=== PATIENT | female | born 1970 | race Caucasian/White ===

== ENCOUNTER 2019-08-22 14:55 | Emergency (ER) | payer OTHER ==
[~2019-08-22] VITALS: Ht 165.1 cm; Wt 72.6 kg
[2019-08-22 14:59] VITALS: BP 129/101
--- NOTE | 2019-08-22 15:05 | NUR ---
48 Y/O FEMALE BIBA WITH POSSIBLE OVERDOSE. PT ADMITS TO METH USE AND ETOH CONSUMPTION TODAY. STATES SHE HAS "A LOT OF VODKA". ADMITS TO HEROIN USE YESTERDAY. EMS STATES PT WAS FOUND ON HER LT LATERAL SIDE AT HOME, UNRESPONSIVE. PT PRESENTS WITH GCS OF 14 UPON ARRIVAL. RR EVEN AND UNLABORED, PLACED ON THE MONITOR. DR DIXON MADE AWARE OF STATUS. WILL CONTINUE TO MONITOR
--- NOTE | 2019-08-22 15:07 | NUR ---
DR AN AT BEDSIDE EXAMINING PT
[2019-08-22] MEDS ORDERED: NACL 0.9% 1,000 ML IV ONE (15:10)
--- NOTE | 2019-08-22 15:33 | NUR ---
CONTACTED POISON CONTROL. SPOKE TO ED RECOMMENDATIONS-- 6 HR OBSERVATION ON AIRCONDITIONING DRAFTING OFFICER WITH SEIZURE PRECAUTIONS
--- NOTE | 2019-08-22 16:28 | NUR ---
PT AWAKE AND ALERT, VSS. FRIEND AT BEDSIDE. WILL CONTINUE TO MONITOR
[2019-08-22 17:02] VITALS: BP 120/72
--- NOTE | 2019-08-22 17:02 | NUR ---
Patient discharged with v/s stable. Written and verbal after care instructions given and explained. Patient verbalized understanding. Ambulatory with steady gait. All questions addressed prior to discharge. Advised to follow up with PMD.
== END 2019-08-22 17:02 | disposition home or self-care (01) ==
LOC: MED 14:55
DX: T43.621A Poisoning by amphetamines, accidental (unintentional), initial encounter (principal); F19.10 Other psychoactive substance abuse, uncomplicated; F10.10 Alcohol abuse, uncomplicated; Y92.89 Other specified places as the place of occurrence of the external cause
CPT/HCPCS: 99283; J7030

== ENCOUNTER 2019-11-06 21:20 | Emergency (ER) | payer OTHER ==
[~2019-11-06] VITALS: Ht 165.1 cm; Wt 68.0 kg
[2019-11-06 21:21] VITALS: BP 138/90
--- NOTE | 2019-11-06 21:30 | NUR ---
pt came in to er with c/o cough today. no cough abserved. no fever and O2 sat is 97 percent on ra. pt denies pain 0/10 at this time. pt is alert and oriented x 4 pt is able to answerr questions appropriately. ermd made aware of status, safety measures in place. will continue to monitor.
--- NOTE | 2019-11-06 22:59 | NUR ---
pt sitting in chair, vss. comfort measures offered, pt tolerated well. will continue to monitor
[2019-11-06] MEDS ORDERED: DEXAMETHASONE 10 MG/ML VIAL PO ONE (23:35)
--- NOTE | 2019-11-06 23:46 | NUR ---
PT BEING XR IN CHAIR.
[2019-11-07 00:40] VITALS: BP 131/96
--- NOTE | 2019-11-07 00:40 | NUR ---
Patient discharged with v/s stable. Written and verbal after care instructions given and explained. Patient alert, oriented and verbalized understanding of instructions. Ambulatory with steady gait. All questions addressed prior to discharge. ID band removed. Patient advised to follow up with PMD. Rx of ALBUERTOL, GUAIATUSSIN, AND AZITHROMYCIN given. Patient educated on indication of medication including possible reaction and side effects. Opportunity to ask questions provided and answered.
== END 2019-11-07 00:40 | disposition home or self-care (01) ==
LOC: MED 21:20
DX: J20.9 Acute bronchitis, unspecified (principal); J04.0 Acute laryngitis; F17.210 Nicotine dependence, cigarettes, uncomplicated
CPT/HCPCS: 71045; 99283; J1100; Q0092

== ENCOUNTER 2020-02-03 16:40 | Emergency (ER) | payer OTHER ==
[~2020-02-03] VITALS: Ht 165.1 cm; Wt 68.0 kg
[2020-02-03 16:40] VITALS: BP 114/62
--- NOTE | 2020-02-03 16:40 | NUR ---
Patient BIBA ALS, transferred to bed 2. RN evaluating patient at bedside.
--- NOTE | 2020-02-03 16:48 | NUR ---
49 Y/O F BIBA FROM HOME C/C SEIZURE. PER PT EPISODE OF SEIZURE FOR 10 MINUTES, WITNESSED BY SISTER AT HOME, 911 CALLED. PT PRESENTS A/OX4, WITH A HEAD INJURY IN THE RIGHT PARIETAL LOBE AREA, BLEEDING NOTED, ERMD AT BEDSIDE-BLEEDING CONTROLLED. NEURO WNL, PUPILS PERRLA 3MM REACTIVE. ALL CRANIAL NERVES INTACT. PT NKA. HX SEIZURES,DEPRESSION. RX ABILIFY. NO NVD. SIDE RAIL X2. SEIZURE PRECAUTIONS IN PLACE.
--- NOTE | 2020-02-03 16:48 | NUR ---
Dr. Carrera is evaluating the patient at bedside.
[2020-02-03] MEDS ORDERED: levETIRAcetam 500 MG TAB PO ONE (17:00)
[2020-02-03 17:59] VITALS: BP 114/62
--- NOTE | 2020-02-03 17:59 | NUR ---
Patient discharged with v/s stable. Written and verbal after care instructions given and explained. Patient alert, oriented and verbalized understanding of instructions. Ambulatory with steady gait. All questions addressed prior to discharge. ID band removed. Patient advised to follow up with PMD. Rx of KEAMIRA given. Patient educated on indication of medication including possible reaction and side effects. Opportunity to ask questions provided and answered.
== END 2020-02-03 17:59 | disposition home or self-care (01) ==
LOC: MED 16:40
DX: S01.91XA Laceration without foreign body of unspecified part of head, initial encounter (principal); F10.951 Alcohol use, unspecified with alcohol-induced psychotic disorder with hallucinations; R56.9 Unspecified convulsions; X58.XXXA Exposure to other specified factors, initial encounter; Y93.89 Activity, other specified; Y92.89 Other specified places as the place of occurrence of the external cause; Y99.8 Other external cause status
CPT/HCPCS: 70450; 99284

== ENCOUNTER 2020-11-11 23:25 | Emergency (ER) | payer OTHER ==
[~2020-11-11] VITALS: Ht 162.6 cm; Wt 63.5 kg
[2020-11-11 23:33] VITALS: BP 148/105
--- NOTE | 2020-11-11 23:39 | NUR ---
PT TAKEN TO BED 2
[2020-11-11] MEDS ORDERED: NACL 0.9% 1,000 ML IV ONE (23:40)
--- NOTE | 2020-11-11 23:52 | NUR ---
50/F BIB self complaining of overdose yesterday, pt took xanax x 4 and percocet x 4 at 2200 11/10/20. Pt without any suicidal thoughts at this time and denies any intention of hurting or killing self. Pt aaox4, ambulatory, able to make needs known, PERRL, calm and cooperative to care. Safety measures in place, will continue to monitor. med hx: borderline personality disorder allergies: nka
[2020-11-11 23:57] LABS: EOSINOPHILS # (AUTO) 0.1 K/uL (0-0.4); EOSINOPHILS % (AUTO) 2.1 % (0.0-4.0); HEMATOCRIT 49.7 % (36-48); HEMOGLOBIN 16.7 g/dL (12.0-16.0); LYMPHOCYTES # (AUTO) 1.4 K/uL (2.5-16.5); LYMPHOCYTES % (AUTO) 33.1 % (20.5-51.1); MEAN CORPUSCULAR HEMOGLOBIN 34 pg (27-31); MEAN CORPUSCULAR HGB CONC 34 g/dL (33-37); MEAN CORPUSCULAR VOLUME 99.4 fL (80-94); MONOCYTES # (AUTO) 0.2 K/uL (0.8-1.0); MONOCYTES % (AUTO) 4.6 % (1.7-9.3); NEUTROPHILS # (AUTO) 2.5 K/uL (1.8-7.7); NEUTROPHILS % (AUTO) 59.2 % (42.2-75.2); PLATELET COUNT (AUTO) 306 K/uL (140-450); RED CELL DISTRIBUTION WIDTH 14.4 % (11.6-13.7); WHITE BLOOD COUNT (AUTO) 4.3 K/uL (4.8-10.8)
[2020-11-12 00:12] LABS: ALBUMIN 3.9 g/dL (3.4-5.0); ANION GAP 13.5 (8-16); CARBON DIOXIDE 27.5 mmol/L (21-32); CREATININE 0.8 mg/dL (0.6-1.3); TOTAL BILIRUBIN 0.7 mg/dL (0.0-1.0)
--- NOTE | 2020-11-12 00:24 | NUR ---
urine sent to lab
--- NOTE | 2020-11-12 00:36 | NUR ---
pt complaining of leg pain. md made aware. order of motrin 800mg PO once received.
[2020-11-12] MEDS ORDERED: IBUPROFEN 800 MG TAB PO ONE (00:40)
[2020-11-12 00:41] LABS: BARBITURATE, URINE NEGATIVE ng/ml (NEG <=200); BENZODIAZEPINE, URINE POSITIVE ng/mL (NEG <=200)
[2020-11-12 00:42] LABS: CANNABINOID, URINE NEGATIVE ng/mL (NEG <=50); OPIATE, URINE NEGATIVE ng/mL (NEG <=2000); PHENCYCLIDINE SCREEN,URINE NEGATIVE ng/mL (NEG <=25)
[2020-11-12 00:43] LABS: COCAINE, URINE NEGATIVE ng/mL (NEG <=300)
--- NOTE | 2020-11-12 01:04 | NUR ---
Dr. Simental examining patient.
--- NOTE | 2020-11-12 01:26 | NUR ---
DR. PERKINS TALKING TO PT'S ROOMATE (RAF) ON THE PHONE.
--- NOTE | 2020-11-12 01:44 | NUR ---
CALLED SAMIR GUPTA; SPOKE TO PAXTON REGARDING PSYCH EVALUATION FOR PT
--- NOTE | 2020-11-12 01:57 | NUR ---
CALLED SAMIR GUPTA AND S/W PAXTON TO INFORM HER THE PSYCH EVAL WAS NO LONGER NECESSARY PER DR. PERKINS.
--- NOTE | 2020-11-12 02:00 | NUR ---
Patient does not wish to proceed with medical care recommended by DR. PERKINS. Patient given information related to possible complications, up to and including , which could occur as a result of leaving hospital at this time. Patient verbalizes understanding of risks involved leaving against medical advice. Patient has signed AMA form.
== END 2020-11-12 02:00 | disposition home or self-care (01) ==
LOC: MED 23:25
DX: T43.622A Poisoning by amphetamines, intentional self-harm, initial encounter (principal); R42 Dizziness and giddiness; M79.652 Pain in left thigh; Y92.89 Other specified places as the place of occurrence of the external cause
CPT/HCPCS: 36415; 80053; 80305; 85025; 96360; 99283; G0482; J7030

== ENCOUNTER 2021-04-02 14:23 | Emergency (ER) | payer OTHER ==
[~2021-04-02] VITALS: Ht 165.1 cm; Wt 66.2 kg
[2021-04-02 14:30] VITALS: BP 138/109
[2021-04-02] MEDS ORDERED: KETOROLAC 60 MG/2 ML VIAL IM ONE (14:35)
--- NOTE | 2021-04-02 14:42 | NUR ---
PT TAKEN TO XRAY VIA W/C
--- NOTE | 2021-04-02 14:50 | NUR ---
PT RETURNED FROM XRAY
--- NOTE | 2021-04-02 14:50 | NUR ---
50 Y/O FEMALE C/O RIGHT SHOULDER PAIN X 4 DAYS. PT STATES 8/10, ACHING, EVEN AT REST. DENIES NUMBNESS. DENIES TRAUMA OR INJURY TO AREA. NO MEDICATIONS TAKEN. NO BRUISING OR TRAUMA NOTED. PMH: SEIZURES, BORDERLINE PERSONALITY DO MEDS: ABILIFY, UNRECALLED SEIZURE MEDS NKA
[2021-04-02] MEDS ORDERED: IBUP-2213 PO (15:50)
--- NOTE | 2021-04-02 15:57 | NUR ---
pt was given a sling on left arm by CHAS Roque
[2021-04-02 16:00] VITALS: BP 138/109
== END 2021-04-02 16:00 | disposition home or self-care (01) ==
LOC: MED 14:23
DX: S46.911A Strain of unspecified muscle, fascia and tendon at shoulder and upper arm level, right arm, initial encounter (principal); I10 Essential (primary) hypertension; F17.210 Nicotine dependence, cigarettes, uncomplicated; Z86.69 Personal history of other diseases of the nervous system and sense organs; Z79.1 Long term (current) use of non-steroidal anti-inflammatories (NSAID); X58.XXXA Exposure to other specified factors, initial encounter; Y92.89 Other specified places as the place of occurrence of the external cause; Y93.89 Activity, other specified; Y99.8 Other external cause status
CPT/HCPCS: 73030; 96372; 99283; J1885

== ENCOUNTER 2021-08-28 14:34 | Emergency (ER) | payer OTHER ==
[~2021-08-28] VITALS: Ht 165.1 cm; Wt 72.6 kg
[~2021-08-28 14:34] MED LIST: IBUP-2213 PO
--- NOTE | 2021-08-28 14:55 | NUR ---
AMBULATED TO ER BED 7
--- NOTE | 2021-08-28 14:55 | NUR ---
Bc corona in [facility] - 08/28/21 at 1457 by MEDDM ANBULATED TO ER BED 7
--- NOTE | 2021-08-28 14:57 | NUR ---
md at bedside evaluating pt
[2021-08-28 14:59] VITALS: BP 134/95
--- NOTE | 2021-08-28 15:00 | NUR ---
50 Y/O F PT AMBULATED TO BED 7, REFERRED FROM CLINIC FOR R/O STROKE. C/O R HAND NUMBNESS X 2 DAYS. DENIES TRAUMA/INJURY. NKDA SX: TUBAL LIGATION 2005
[2021-08-28] MEDS ORDERED: FOLIC ACID 1 MG TAB PO ONE (15:10)
[2021-08-28] MEDS ORDERED: NACL 0.9% 1,000 ML IV ONE (15:10)
[2021-08-28] MEDS ORDERED: THIAMINE 200 MG/2 ML VIAL IV ONE (15:10)
[2021-08-28 15:38] LABS: BASOPHILS # (AUTO) 0.1 K/uL (0.00-0.22); BASOPHILS % (AUTO) 1.6 % (0.0-2.0); EOSINOPHILS # (AUTO) 0.2 K/uL (0-0.4); EOSINOPHILS % (AUTO) 2.3 % (0.0-4.0); HEMATOCRIT 45.7 % (36-48); HEMOGLOBIN 15.7 g/dL (12.0-16.0); LYMPHOCYTES # (AUTO) 1.5 K/uL (2.5-16.5); LYMPHOCYTES % (AUTO) 22.7 % (20.5-51.1); MEAN CORPUSCULAR HEMOGLOBIN 34 pg (27-31); MEAN CORPUSCULAR HGB CONC 34 g/dL (33-37); MEAN CORPUSCULAR VOLUME 99.9 fL (80-94); MONOCYTES # (AUTO) 0.4 K/uL (0.8-1.0); NEUTROPHILS # (AUTO) 4.5 K/uL (1.8-7.7); NEUTROPHILS % (AUTO) 67.4 % (42.2-75.2); PLATELET COUNT (AUTO) 241 K/uL (140-450); RED BLOOD CELL COUNT(AUTO) 4.57 MIL/uL (4.20-5.40); RED CELL DISTRIBUTION WIDTH 13.9 % (11.6-13.7); WHITE BLOOD COUNT (AUTO) 6.6 K/uL (4.8-10.8)
[2021-08-28 15:56] LABS: ALBUMIN 4.2 g/dL (3.4-5.0); ANION GAP 14.3 (8-16); CREATININE 0.8 mg/dL (0.6-1.3); POTASSIUM 3.3 mmol/L (3.5-5.1); TOTAL BILIRUBIN 1.2 mg/dL (0.0-1.0)
[2021-08-28 16:09] LABS: MAGNESIUM 1.8 mg/dL (1.8-2.4)
[2021-08-28] MEDS ORDERED: POTASSIUM CHLORIDE 10 MEQ TABER PO ONE (16:20)
[2021-08-28] MEDS ORDERED: chlordiazePOXIDE 25 MG CAP PO ONE (16:25)
[2021-08-28] MEDS ORDERED: IBUPROFEN 600 MG TAB PO ONE (16:25)
[2021-08-28] MEDS ORDERED: LIB25 PO (16:30)
[2021-08-28 16:55] VITALS: BP 141/86
--- NOTE | 2021-08-28 16:55 | NUR ---
Patient discharged with v/s stable. Written and verbal after care instructions given and explained. Patient alert, oriented and verbalized understanding of instructions. Ambulatory with steady gait. All questions addressed prior to discharge. ID band removed. Patient advised to follow up with PMD. Rx of LIBRIUM given. Patient educated on indication of medication including possible reaction and side effects. Opportunity to ask questions provided and answered.
== END 2021-08-28 16:55 | disposition home or self-care (01) ==
LOC: MED 14:34
DX: F10.239 Alcohol dependence with withdrawal, unspecified (principal); R20.2 Paresthesia of skin; E87.6 Hypokalemia; Z79.899 Other long term (current) drug therapy; Y90.1 Blood alcohol level of 20-39 mg/100 ml
CPT/HCPCS: 36415; 70450; 80053; 82948; 83690; 83735; 84484; 85025; 93005; 96361; 96374; 99285; G0482; J3411; J7030; 99284

== ENCOUNTER 2021-09-13 10:16 | Emergency (ER) | payer OTHER ==
[~2021-09-13] VITALS: Ht 165.1 cm; Wt 71.7 kg
[~2021-09-13 10:16] MED LIST changes: +LIB25 PO
[2021-09-13 10:24] VITALS: BP 131/84
--- NOTE | 2021-09-13 10:30 | NUR ---
Pt ambulated to bed 12 with steady/even gait.
--- NOTE | 2021-09-13 10:35 | NUR ---
50 y/o F BIB self from home c/o intermittent headaches s/p "2 seizures 2 days ago." 04/13, dull/intermittent, non-radiating. Denies neck/back pain, nausea, dizziness, blurry vision, fall, syncope. Pt reports hx of seizures, however has not been diagnosed with seizures. Denies medications prior to arrival. Pt states 2 shots of alcohol this morning d/t "DTs." Bed locked in lowest position, side rails x 2. Seizure precautions in place. PMH: alcoholism, ulcers, borderline personality disorder Meds: apripiprazole NKDA Sx: 2 C-sections
--- NOTE | 2021-09-13 10:37 | NUR ---
Seizure precautions in place.
[2021-09-13] MEDS ORDERED: THIAMINE 200 MG/2 ML VIAL IM ONE (11:05)
[2021-09-13] MEDS ORDERED: ACETAMINOPHEN EXTRA STRENGTH 500 MG TAB PO ONE (11:05)
[2021-09-13] MEDS ORDERED: FOLIC ACID 5 MG, MULTIVITAMIN-12 10 ML in NACL 0.9% 1,000 ML IV ONE (11:05)
[2021-09-13] MEDS ORDERED: MAG SULF 2000 MG/WATER PREMIX 50 ML IV ONE (11:05)
--- NOTE | 2021-09-13 11:07 | NUR ---
Dr. Urena at bedside.
[2021-09-13] MEDS ORDERED: FOLIC ACID 5 MG/ML SYR ONE (11:14)
[2021-09-13] MEDS ORDERED: DEXAMETHASONE 10 MG/ML VIAL IVP ONE (11:15)
[2021-09-13] MEDS ORDERED: KETOROLAC 15 MG/ML VIAL IVP ONE (11:15)
[2021-09-13] MEDS ORDERED: diphenhydrAMINE 50 MG/ML VIAL IVP ONE (11:15)
[2021-09-13] MEDS ORDERED: METOCLOPRAMIDE 10 MG/2 ML INJ VIAL IVP ONE (11:15)
[2021-09-13] MEDS ORDERED: MULTIVITAMIN-12 10 ML VIAL IV ONE (11:16)
[2021-09-13 11:50] LABS: HEMOGLOBIN 14.4 g/dL (12.0-16.0); MEAN CORPUSCULAR HEMOGLOBIN 34 pg (27-31); MEAN CORPUSCULAR HGB CONC 34 g/dL (33-37); MEAN CORPUSCULAR VOLUME 98.5 fL (80-94); PLATELET COUNT (AUTO) 284 K/uL (140-450); RED BLOOD CELL COUNT(AUTO) 4.27 MIL/uL (4.20-5.40); RED CELL DISTRIBUTION WIDTH 14.2 % (11.6-13.7); WHITE BLOOD COUNT (AUTO) 17.6 K/uL (4.8-10.8)
[2021-09-13 12:08] LABS: BARBITURATE, URINE NEGATIVE ng/ml (NEG <=200); BENZODIAZEPINE, URINE POSITIVE ng/mL (NEG <=200); COCAINE, URINE NEGATIVE ng/mL (NEG <=300)
[2021-09-13 12:09] LABS: CANNABINOID, URINE NEGATIVE ng/mL (NEG <=50); OPIATE, URINE NEGATIVE ng/mL (NEG <=2000); PHENCYCLIDINE SCREEN,URINE NEGATIVE ng/mL (NEG <=25)
[2021-09-13 13:05] LABS: ALBUMIN 3.1 g/dL (3.4-5.0); ANION GAP 12.9 (8-16); ASPARTATE AMINOTRANSFERASE 270 U/L (15-37); CHLORIDE 97 mmol/L (98-107); CREATININE 0.6 mg/dL (0.6-1.3); GFR ARICAN-AMERICAN 136 mL/min (>90); GLUCOSE 98 mg/dL (74-106); SALICYLATE 5.4 mg/dL (2.8-20.0); SODIUM SERUM 136 mmol/L (136-145); TOTAL BILIRUBIN 0.9 mg/dL (0.0-1.0); UREA NITROGEN, BLOOD 9 mg/dL (7-18)
[2021-09-13 13:42] LABS: ACETAMINOPHEN < 0.5 ug/ml (10-30); POTASSIUM 2.9 mmol/L (3.5-5.1)
[2021-09-13] MEDS ORDERED: POTASSIUM CHL 40 MEQ/ D5-1/2NS 1,000 ML IV ONE (13:50)
--- NOTE | 2021-09-13 13:50 | NUR ---
Dr. Urena at bedside reassesing patient.
[2021-09-13] MEDS ORDERED: POTA10TA70 PO (13:55)
--- NOTE | 2021-09-13 14:04 | NUR ---
Patient refused medication stating infusion will take too long. Dr. Urena made aware and PO meds to be placed.
[2021-09-13] MEDS ORDERED: POTASSIUM CHLORIDE 10 MEQ TABER PO ONE (14:05)
--- NOTE | 2021-09-13 14:15 | NUR ---
Pt reports pain alleviated; 2/10 at this time. All pt needs met.
[2021-09-13 14:17] LABS: LYMPHOCYTES % (MANUAL) 14 % (20-46)
[2021-09-13 14:18] LABS: BASOPHILS % (MANUAL) 0 % (0-2); BLASTS, MANUAL % 0 % (0-0); EOSINOPHILS % (MANUAL) 0 % (0-4); METAMYELOCYTES % 0 % (0-0); MONOCYTES % (MANUAL) 10 % (5-12); MYELOCYTES % 0 % (0-0); OTHER CELLS,MANUAL % 0 (0-0); PROMYELOCYTES % 0 % (0-0)
[2021-09-13 14:21] VITALS: BP 120/88
--- NOTE | 2021-09-13 14:30 | NUR ---
Patient discharged with v/s stable. Written and verbal after care instructions given and explained. Patient alert, oriented and verbalized understanding of instructions. Ambulatory with steady gait. All questions addressed prior to discharge. ID band removed. Patient advised to follow up with PMD. Rx of Anderson rodríguez. Patient educated on indication of medication including possible reaction and side effects. Opportunity to ask questions provided and answered.
== END 2021-09-13 14:30 | disposition home or self-care (01) ==
LOC: MED 10:16
DX: R51.9 Headache, unspecified (principal); E87.6 Hypokalemia; F10.10 Alcohol abuse, uncomplicated; F15.10 Other stimulant abuse, uncomplicated; Z79.899 Other long term (current) drug therapy; Z98.890 Other specified postprocedural states; Y90.4 Blood alcohol level of 80-99 mg/100 ml
CPT/HCPCS: 36415; 80053; 80305; 82550; 82553; 85025; 96365; 96366; 96372; 96375; 99284; G0480; G0482; J1100; J1200; J1885; J2765; J3411; J3475; 93005; A9153; J3490

== ENCOUNTER 2022-03-19 10:12 | Emergency (ER) | payer OTHER ==
[~2022-03-19] VITALS: Ht 165.1 cm; Wt 77.1 kg
[~2022-03-19 10:12] MED LIST changes: +POTA10TA70 PO
[2022-03-19 10:21] VITALS: BP 112/69
--- NOTE | 2022-03-19 10:26 | NUR ---
PATIENT AMBULATED TO BED 12.
--- NOTE | 2022-03-19 11:03 | NUR ---
51 y/o female bib self, c/o generalized body rash for 6 days. denies nausea, vomiting, diarrhea. a&o x4 with even and steady gait. lungs clear bl, heart rate even and regular. pt denies anyone sick in the household with the same symptoms. pt denies any fever, cp, sob, or cough at this time. vss. patient positioned for comfort. hob elevated. bed down. ermd made aware of pt. pmh: seizure nka
[2022-03-19] MEDS ORDERED: CETI10SG1 PO (11:45)
[2022-03-19 11:52] VITALS: BP 112/69
--- NOTE | 2022-03-19 11:52 | NUR ---
Patient discharged with v/s stable. Written and verbal after care instructions given and explained. Patient alert, oriented and verbalized understanding of instructions. Ambulatory with steady gait. All questions addressed prior to discharge. ID band removed. Patient advised to follow up with PMD. Rx of zyrtec (sent) given. Patient educated on indication of medication including possible reaction and side effects. Opportunity to ask questions provided and answered.
== END 2022-03-19 11:52 | disposition home or self-care (01) ==
LOC: MED 10:12
DX: R21 Rash and other nonspecific skin eruption (principal)
CPT/HCPCS: 99282

== ENCOUNTER 2022-08-20 18:07 | Emergency (ER) | payer OTHER ==
[~2022-08-20 18:07] MED LIST changes: +CETI10SG1 PO
--- NOTE | 2022-08-20 18:20 | NUR ---
CALLED X 1. NO SHOW. Addendum: 08/20/22 at 1823 by MED1 PATIENT LEFT WITHOUT BEING SEEN BY DR. DR BONDS. NO FURTHER CARE PROVIDED FOR PATIENT.
--- NOTE | 2022-08-20 18:22 | NUR ---
CALLED [phone]. NO ANSWERING.
== END 2022-08-20 18:22 | disposition left against medical advice (07) ==
LOC: MED 18:07
DX: M54.50 Low back pain, unspecified (principal); Z53.21 Procedure and treatment not carried out due to patient leaving prior to being seen by health care provider

== ENCOUNTER 2022-08-27 16:50 | Emergency (ER) | payer OTHER ==
[~2022-08-27] VITALS: Ht 165.1 cm; Wt 68.0 kg
[2022-08-27 17:17] VITALS: BP 117/75
[2022-08-27 17:23] VITALS: BP 124/78
[2022-08-27 17:24] VITALS: BP 124/78
--- NOTE | 2022-08-27 17:32 | NUR ---
DAUGHTER LYNSEY CALLED [phone]
--- NOTE | 2022-08-27 17:36 | NUR ---
PT STATED SHE USED METH TODAY.
--- NOTE | 2022-08-27 17:36 | NUR ---
TO ER BED 11
--- NOTE | 2022-08-27 17:48 | NUR ---
ASSUMED PATIENT CARE, NURSING ASSESSMENT COMPLETED.
[2022-08-27 18:35] LABS: BILIRUBIN,URINE 3+ (NEGATIVE); BLOOD, URINE NEGATIVE (NEGATIVE); LEUKOCYTE ESTERASE ,URINE TRACE (NEGATIVE); NITRITE, URINE POSITIVE (NEGATIVE); UGLUCOSE TRACE (NEGATIVE)
[2022-08-27 18:36] LABS: APPEARANCE,URINE TURBID (CLEAR); COLOR,URINE ORANGE (YELLOW)
[2022-08-27 18:45] LABS: BARBITURATE, URINE POSITIVE ng/ml (NEG <=200)
[2022-08-27 18:46] LABS: BENZODIAZEPINE, URINE NEGATIVE ng/mL (NEG <=200); CANNABINOID, URINE POSITIVE ng/mL (NEG <=50); COCAINE, URINE NEGATIVE ng/mL (NEG <=300); OPIATE, URINE NEGATIVE ng/mL (NEG <=2000); PHENCYCLIDINE SCREEN,URINE NEGATIVE ng/mL (NEG <=25)
[2022-08-27 19:11] LABS: BASOPHILS # (AUTO) 0.1 K/uL (0.00-0.22); EOSINOPHILS % (AUTO) 0.3 % (0.0-4.0); HEMATOCRIT 47.1 % (36-48); HEMOGLOBIN 15.9 g/dL (12.0-16.0); LYMPHOCYTES # (AUTO) 3.7 K/uL (2.5-16.5); MEAN CORPUSCULAR HEMOGLOBIN 35 pg (27-31); MEAN CORPUSCULAR HGB CONC 34 g/dL (33-37); MEAN CORPUSCULAR VOLUME 104.9 fL (80-94); MONOCYTES # (AUTO) 0.8 K/uL (0.8-1.0); MONOCYTES % (AUTO) 6.1 % (1.7-9.3); NEUTROPHILS # (AUTO) 8.6 K/uL (1.8-7.7); NEUTROPHILS % (AUTO) 64.6 % (42.2-75.2); PLATELET COUNT (AUTO) 173 K/uL (140-450); RED BLOOD CELL COUNT(AUTO) 4.49 MIL/uL (4.20-5.40); RED CELL DISTRIBUTION WIDTH 18.5 % (11.6-13.7); WHITE BLOOD COUNT (AUTO) 13.3 K/uL (4.8-10.8)
[2022-08-27 19:25] LABS: ALBUMIN 5.1 g/dL (3.4-5.0); ANION GAP 19.7 (8-16); ASPARTATE AMINOTRANSFERASE 77 U/L (15-37); CARBON DIOXIDE 24.7 mmol/L (21-32); CHLORIDE 94 mmol/L (98-107); CREATININE 2.1 mg/dL (0.6-1.3); GFR ARICAN-AMERICAN 32 mL/min (>90); GLUCOSE 121 mg/dL (74-106); POTASSIUM 3.4 mmol/L (3.5-5.1); SODIUM SERUM 135 mmol/L (136-145); UREA NITROGEN, BLOOD 16 mg/dL (7-18)
--- NOTE | 2022-08-27 19:30 | NUR ---
Patient lying in bed, A/Ox4, chest rise and fall symmetrical, no c/o pain or s/s of discomfort, on monitor, seizure/pads precautions in place.
[2022-08-27] MEDS ORDERED: CEPH-588 PO (19:50)
[2022-08-27 20:03] VITALS: BP 118/75
== END 2022-08-27 20:00 | disposition home or self-care (01) ==
LOC: MED 16:50
DX: R41.0 Disorientation, unspecified (principal); N39.0 Urinary tract infection, site not specified; F19.90 Other psychoactive substance use, unspecified, uncomplicated; F15.90 Other stimulant use, unspecified, uncomplicated; Z86.69 Personal history of other diseases of the nervous system and sense organs; Z98.890 Other specified postprocedural states
CPT/HCPCS: 36415; 80053; 80305; 81001; 82140; 85025; 87086; 99283; G0482

== ENCOUNTER 2022-10-07 08:11 | Inpatient (IN) | payer OTHER ==
[~2022-10-07] VITALS: Ht 165.1 cm; Wt 72.6 kg
[~2022-10-07 08:11] MED LIST changes: +CEPH-588 PO
--- NOTE | 2022-10-07 08:17 | NUR ---
PT AMB TO BED 9
[2022-10-07 08:18] VITALS: BP 150/100
[2022-10-07] MEDS ORDERED: LORazepam 2 MG/ML VIAL IVP ONE ×2 (08:35→11:15)
[2022-10-07] MEDS ORDERED: NACL 0.9% 1,000 ML IV ONE (08:35)
[2022-10-07 09:33] LABS: BASOPHILS # (AUTO) 0.1 K/uL (0.00-0.22); BASOPHILS % (AUTO) 1.2 % (0.0-2.0); EOSINOPHILS # (AUTO) 0.1 K/uL (0-0.4); HEMATOCRIT 43.9 % (36-48); HEMOGLOBIN 15.2 g/dL (12.0-16.0); LYMPHOCYTES # (AUTO) 1.8 K/uL (2.5-16.5); LYMPHOCYTES % (AUTO) 26.7 % (20.5-51.1); MEAN CORPUSCULAR HEMOGLOBIN 36 pg (27-31); MEAN CORPUSCULAR HGB CONC 35 g/dL (33-37); MEAN CORPUSCULAR VOLUME 104.6 fL (80-94); MONOCYTES # (AUTO) 0.4 K/uL (0.8-1.0); MONOCYTES % (AUTO) 5.9 % (1.7-9.3); NEUTROPHILS # (AUTO) 4.5 K/uL (1.8-7.7); NEUTROPHILS % (AUTO) 65.2 % (42.2-75.2); PLATELET COUNT (AUTO) 217 K/uL (140-450); RED CELL DISTRIBUTION WIDTH 15.4 % (11.6-13.7); WHITE BLOOD COUNT (AUTO) 6.9 K/uL (4.8-10.8)
--- NOTE | 2022-10-07 09:33 | NUR ---
AMBULATES WITH STEADY GAIT TO BR. NOTED HAND TREMORS
[2022-10-07 11:01] LABS: ALBUMIN 4.9 g/dL (3.4-5.0); ANION GAP 21.9 (8-16); ASPARTATE AMINOTRANSFERASE 69 U/L (15-37); CARBON DIOXIDE 26.1 mmol/L (21-32); CHLORIDE 100 mmol/L (98-107); CREATININE 0.8 mg/dL (0.6-1.3); GFR ARICAN-AMERICAN 97 mL/min (>90); GLUCOSE 101 mg/dL (74-106); SODIUM SERUM 144 mmol/L (136-145); TOTAL BILIRUBIN 1.4 mg/dL (0.0-1.0); UREA NITROGEN, BLOOD 12 mg/dL (7-18)
[2022-10-07] MEDS ORDERED: MAGNESIUM OXIDE 400 MG TAB PO PRN (11:35)
[2022-10-07] MEDS ORDERED: LORazepam 2 MG/ML VIAL IVP PRN (11:35)
[2022-10-07] MEDS ORDERED: ONDANSETRON 4 MG/2 ML VIAL IVP PRN (11:35)
[2022-10-07] MEDS ORDERED: ACETAMINOPHEN 325 MG TAB PO PRN (11:35)
[2022-10-07] MEDS ORDERED: PHENobarbital 65 MG/ML VIAL IV ONE (11:35)
[2022-10-07] MEDS ORDERED: HYDROcodone/APAP 5/325 MG 1 TAB TAB PO PRN (11:35)
[2022-10-07] MEDS: NACL 0.9% 1,000 ML IV SCH (11:35)
[2022-10-07] MEDS ORDERED: MORPHINE SULFATE 4 MG/ML SYR IVP PRN (11:35)
[2022-10-07] MEDS ORDERED: POTASSIUM CHLORIDE 10 MEQ TABER PO PRN (11:35)
[2022-10-07] MEDS ORDERED: ARIP30TA12 PO (11:39)
[2022-10-07] MEDS ORDERED: LAMO25TA6 PO (11:39)
[2022-10-07] MEDS ORDERED: GABA300C1 PO (11:39)
[2022-10-07] MEDS ORDERED: PHENOBARBITAL IV SCH (13:00)
[2022-10-07] MEDS ORDERED: NACL 0.9% IV SCH (13:00)
[2022-10-07 14:37] LABS: PROTHROMBIN TIME 10.4 secs (10.8-13.4)
[2022-10-07 15:17] VITALS: BP 117/73
--- NOTE | 2022-10-07 15:17 | NUR ---
PATIENT ARRIVED FROM ER, ABLE TO AMBULATE TO [facility] BED WITH UNSTEADY GAIT, AAOX1, ANSWERS QUESTIONS. DENIES PAIN. REVIEWED PLAN OF CARE WITH PATIENT, REINFORCEMENT NEEDED. SAFETY MEASURES IN PLACE, CALL LIGHT WITHIN REACH. WILL CONTINUE TO MONITOR.
[2022-10-07] MEDS ORDERED: MULTIVITAMIN-12 10 ML, FOLIC ACID 1 MG in NACL 0.9% 1,000 ML IV ONE (15:30)
--- NOTE | 2022-10-07 15:43 | NUR ---
Patient will be admitted to care of DR LIM. Admited to TELE. Will go to room 106B. Belongings list completed. Report to BONITA SAAB.
[2022-10-07] MEDS ORDERED: THIAMINE 200 MG/2 ML VIAL IM SCH (16:00)
[2022-10-07] MEDS ORDERED: MAG SULF 2000 MG/WATER PREMIX 50 ML IV SCH (16:00)
--- NOTE | 2022-10-07 16:53 | NUR ---
SCHEDULED MEDICATIONS DUE GIVEN. WILL CONTINUE TO MONITOR.
--- NOTE | 2022-10-07 19:24 | NUR ---
GAVE REPORT TO EXPERIMENTAL PREFLIGHT MECHANIC NURSE FOR CONTINUITY OF CARE.
--- NOTE | 2022-10-07 19:25 | NUR ---
RECEIVED PATIENT ON THE BED, PATIENT IS ALERT AND ORIENTED X3, NO SIGNS OF ACUTE DISTRESS NOTED, PATIENT DENIES PAIN. FAMILY AT BEDSIDE, CALL LIGHT WITHIN REACH.
[2022-10-07 20:00] VITALS: BP 126/83
[2022-10-07] MEDS: chlordiazePOXIDE 25 MG CAP PO SCH (20:15)
--- NOTE | 2022-10-07 20:16 | NUR ---
SCHEDULED MEDICATIONS GIVEN ORDERED.
--- NOTE | 2022-10-07 22:31 | NUR ---
CLARIFIED WITH HUMAN RESOURCES BENEFITS ADMINISTRATOR FOR PATIENT'S DIET ORDER, AWAITING RESPONSE.
--- NOTE | 2022-10-07 23:21 | NUR ---
PATIENT IS AWAKE, PATIENT DENIES PAIN/DISCOMFORT, BREATHING EVEN AND NON LABORED ON ROOM AIR. ALL SAFETY MEASURES IN PLACE.
[2022-10-08] VITALS: BP 134/82
[2022-10-08] MEDS: NACL 0.9% 1,000 ML IV SCH ×2 (00:05→02:34)
--- NOTE | 2022-10-08 00:10 | NUR ---
VITALS T 98.1, P 86, BP 134/82, RESP 18, O2 SATS 97% ON ROOM AIR. PATIENT IS ASLEEP, BREATHING EVEN AND NON LABORED. BED IN LOW AND LOCKED POSITION. CALL LIGHT WITHIN REACH.
[2022-10-08 04:00] VITALS: BP 140/80
--- NOTE | 2022-10-08 04:30 | NUR ---
PATIENT ASSISTED TO THE RESTROOM, GAIT STEADY, NO TREMORS NOTED, PATIENT ABLE TO MAKE NEEDS KNOWN, PATIENT DENIES PAIN, NO SIGNS OF DISTRESS NOTED. CALL LIGHT WITHIN REACH, BED IN LOW AND LOCKED POSITION.
[2022-10-08 07:03] LABS: BASOPHILS % (AUTO) 0.9 % (0.0-2.0); EOSINOPHILS # (AUTO) 0.2 K/uL (0-0.4); EOSINOPHILS % (AUTO) 3.5 % (0.0-4.0); HEMATOCRIT 36.7 % (36-48); HEMOGLOBIN 12.6 g/dL (12.0-16.0); LYMPHOCYTES # (AUTO) 1.9 K/uL (2.5-16.5); LYMPHOCYTES % (AUTO) 38.6 % (20.5-51.1); MEAN CORPUSCULAR HEMOGLOBIN 36 pg (27-31); MEAN CORPUSCULAR HGB CONC 34 g/dL (33-37); MEAN CORPUSCULAR VOLUME 104.8 fL (80-94); MONOCYTES # (AUTO) 0.3 K/uL (0.8-1.0); MONOCYTES % (AUTO) 6.5 % (1.7-9.3); NEUTROPHILS # (AUTO) 2.4 K/uL (1.8-7.7); NEUTROPHILS % (AUTO) 50.5 % (42.2-75.2); PLATELET COUNT (AUTO) 180 K/uL (140-450); WHITE BLOOD COUNT (AUTO) 4.8 K/uL (4.8-10.8)
--- NOTE | 2022-10-08 07:15 | NUR ---
PATIENT IS IN STABLE CONDITION. ENDORSED TO DAY NURSE FOR CONTINUITY OF CARE.
--- NOTE | 2022-10-08 07:48 | NUR ---
RECIEVED PATIENT FROM PM NURSE FOR CONTINUITY OF CARE. PATIENT SEEN ASLEEP, NORMAL RISE AND FALL OF CHEST.
[2022-10-08 08:00] VITALS: BP 140/80
--- NOTE | 2022-10-08 09:09 | NUR ---
PATIENT HAS BEEN SCREENED AND CATEGORIZED LOW NUTRITION RISK. PATIENT WILL BE SEEN WITHIN 7 DAYS OF ADMISSION. 10/14/[address]VIEW[address] BY ASHER WARD RD
[2022-10-08 09:20] LABS: ALBUMIN 3.3 g/dL (3.4-5.0); ANION GAP 15.2 (8-16); CARBON DIOXIDE 23.7 mmol/L (21-32); CREATININE 0.6 mg/dL (0.6-1.3); TOTAL BILIRUBIN 1.5 mg/dL (0.0-1.0)
[2022-10-08 09:29] LABS: POTASSIUM 2.9 mmol/L (3.5-5.1)
[2022-10-08] MEDS: chlordiazePOXIDE 25 MG CAP PO SCH (11:11)
--- NOTE | 2022-10-08 11:15 | NUR ---
DC PLANNING ASSESSMENT COMPLETE PLEASE REFER TO ASSESSMENT FOR ADDITIONAL DETAILS PT REPEATEDLY STATED SHE WANTED TO SIGN AMA. SW HIGHLY ENCOURAGED PATIENT TO RECONSIDER AMA-ING WOULD NOT BE SAFE. PT REPORTED TO PHYSICIAN SHE WANTED TO AMA. PHYSICIAN PROVIDED OPTIONS TO CURVE CRAVING TO SMOKE. PT CONTINUED TO REFUSE AND REPORTED SHE WOULD NOT STAY AND WANTED TO AMA. Addendum: 10/08/22 at 1555 by Mena LAZO Amended: Links added. Addendum: 10/08/22 at 1606 by Mena LAZO CM COFFERDAM CONSTRUCTION SUPERVISOR RELAYED MESSAGE THAT PTS UNCLE, FERNANDA SIEGEL CALLED TO INQUIRE ON PT. PATI GIVEN FERNANDA PHONE NUMBER. OUTREACHED TO FERNANDA TO INQUIRE ON ASSISTANCE HE IS REQUIRING. FERNANDA REPORTS BEING PTS EXECUTOR TO [employer]. FERNANDA REPORTS RECEIVING INFORMATION THAT PT IS BEING MISTREATED. PATI INFORMED FERNANDA, THIS DIRECTOR OF EMAIL MARKETING WAS GOING TO CHECK IN WITH PT TO CONFIRM, PERMISSION BE GIVEN TO RELEASE INFORMATION. FERNANDA THREATENED TO CALL [facility] FOR MISTREATMENT OF PT. PATI ENSURED PATI WOULD RETURN CALL IF GIVEN PERMISSION, FERNANDA AGREE'D. PATI AND [employer]FFER[employer] CONSTRUCTION SUPERVISOR ATTEMPTED TO MEET PT AT BEDSIDE TO OBTAIN PERMISSION TO SPEAK WITH UNCLE HOWEVER, PT NOT IN ROOM AND REPORTED TO HAVE AMA'D. OUTREACHED TO PTS DAUGHTER, ODALYS CHINO, TO INFORM HER THAT PT AMA'D. ODALYS VERY UNDERSTANDING AND THANKED HOSPITAL FOR DOING WHAT THEY CAN TO KEEP PT. PATI REQUESTED SHE CALL HER UNCLE, FERNANDA TO PROVIDE HIM WITH UPDATE I DONT HAVE PERMISSION TO RELEASE ANY INFORMATION, ODALYS AGREED.
--- NOTE | 2022-10-08 15:05 | NUR ---
PATIENT DECIDED TO GO AMA. SIGNED AMA PAPERS. PICKED UP BY FAMILY MEMBER AT THE FRONT LOBBY.
== END 2022-10-08 15:05 | disposition left against medical advice (07) | DRG 894 ==
LOC: MED 08:11 → MTU 11:34
PROVIDERS: ADMIT Student in an Organized Health Care Education/Training Program; ATTEND Student in an Organized Health Care Education/Training Program
DX: F10.139 Alcohol abuse with withdrawal, unspecified (principal); E51.2 Wernicke's encephalopathy; I10 Essential (primary) hypertension; D64.9 Anemia, unspecified; E86.1 Hypovolemia; R00.0 Tachycardia, unspecified; Z20.822 Contact with and (suspected) exposure to COVID-19
CPT/HCPCS: 36415; 80053; 83690; 83735; 85025; 85610; 85730; 87081; 96374; 96375; 99285; A9153; G0482; J1644; J2060; J2560; J3411; J3475; J3490; J7030